=== PATIENT | female | born 1955 | race Caucasian/White ===

== ENCOUNTER → 2020-01-22 | Day surgery (SDC) | payer OTHER ==
--- NOTE | 2020-01-23 13:13 | PATH ---
Surgical Pathology Report Patient Name: ANA LAY [facility]. Rec. #: [id number] /Age/Gender: 1955 (Age: 64) / F Account: [id number] Location: [facility] Taken: 01/22/2020 Received: 01/22/2020 Reported: 01/23/2020 Physicians: Robert Arredondo M.D. Specimen(s) Received A: RIGHT BREAST SPECIMEN-WITH CALCIFICATIONS B: RIGHT BREAST SPECIMEN-WITHOUT CALCIFICATIONS Clinical History Nonpalpable lesion Mammographic findings: Microcalcification, suspicious Final Diagnosis A. RIGHT BREAST SPECIMEN WITH CALCIFICATIONS, STEREOTACTIC CORE BIOPSY: BENIGN BREAST TISSUE WITH INTRADUCTAL PAPILLOMA, USUAL DUCTAL HYPERPLASIA (UDH), STROMAL FIBROSIS, DILATED DUCTS, APOCRINE METAPLASIA AND ASSOCIATED CALCIFICATIONS (CALCIUM OXALATE CRYSTALS). B. RIGHT BREAST SPECIMEN WITHOUT CALCIFICATIONS, STEREOTACTIC CORE BIOPSY: BENIGN BREAST TISSUE WITH APOCRINE METAPLASIA AND STROMAL FIBROSIS. Electronically Signed Kirit Lorenzo M.D. Gross Description A. Received in formalin labeled "right breast with calcifications," is a 1.4 x 1.0 x 0.3 cm aggregate of multiple gandhi-yellow, irregular to cylindrical portions of fibroadipose tissue. The formalin is filtered and the specimen is entirely submitted in one cassette. B. Received in formalin labeled "right breast without calcifications," are 2 gandhi-yellow, cylindrical portions of fibroadipose tissue measuring 0.9 and 1.3 cm in length and averaging 0.2 cm in diameter. The specimens are submitted in toto in one cassette. Time to formalin fixation: 5 minutes Total formalin fixation time: Approximately 6 hours. /01/22/2020 [facility]/01/22/2020
== END | disposition home or self-care (01) ==
LOC: FMAMMOTONE 09:50
PROVIDERS: ATTEND Internal Medicine
PROC: 0HBT3ZX Excision of Right Breast, Percutaneous Approach, Diagnostic (ICD-10-PCS; principal; 2020-01-22)
DX: D24.1 Benign neoplasm of right breast (principal); N60.11 Diffuse cystic mastopathy of right breast; N60.31 Fibrosclerosis of right breast; N60.81 Other benign mammary dysplasias of right breast; N64.89 Other specified disorders of breast; R92.1 Mammographic calcification found on diagnostic imaging of breast
CPT/HCPCS: 19081; 76098-TC-FY; 87899; 88305-TC; A4648

== ENCOUNTER 2023-05-28 05:32 | Day surgery (SDC) | payer OTHER ==
[2023-05-25 10:25] VITALS: BMI 29.8
[2023-05-28 08:39] VITALS: TEMP 97.1
[2023-05-28 09:23] VITALS: BP 113/58; PULSE 61; RESP 16
== END 2023-05-28 09:23 | disposition home or self-care (01) ==
LOC: JASU-ENDO 05:32
PROVIDERS: ATTEND Internal Medicine Gastroenterology
PROC: 0DBK8ZX Excision of Ascending Colon, Via Natural or Artificial Opening Endoscopic, Diagnostic (ICD-10-PCS; principal; 2023-05-28 08:00)
DX: Z12.11 Encounter for screening for malignant neoplasm of colon (principal); D12.2 Benign neoplasm of ascending colon; K57.30 Diverticulosis of large intestine without perforation or abscess without bleeding; K64.8 Other hemorrhoids; Z86.010 Personal history of colon polyps
CPT/HCPCS: 88305-TC